=== PATIENT | male | born 1970 | race African-American/Black ===

== ENCOUNTER 2018-12-11 21:58 | Inpatient (IN) | payer OTHER ==
[2018-12-11 23:38] VITALS: BMI 24.8
--- NOTE | 2018-12-12 00:12 | HP ---
CIWA Score Nausea/Vomitin-Mild Nausea/No Vomiting Muscle Tremors: 4-Moderate,w/Arms Extend Anxiety: 2 Agitation: 4-Moderately Restless Paroxysmal Sweats: 2 Orientation: 0-Oriented Tacttile Disturbances: 0-None Auditory Disturbances: 0-None Visual Disturbances: 0-None Headache: 3-Moderate CIWA-Ar Total Score: 16 - Admission Criteria [facility]ASAS Guidelines: Admission for Medically Managed Detox: Requires at least one of the followin. CIWA greater than 12 2. Seizures within the past 24 hours 3. Delirium tremens within the past 24 hours 4. Hallucinations within the past 24 hours 5. Acute intervention needed for co occurring medical disorder 6. Acute intervention needed for co occurring psychiatric disorder 7. Severe withdrawal that cannot be handled at a lower level of care (continued vomiting, continued diarrhea, abnormal vital signs) requiring intravenous medication and/or fluids 8. Admission ROS [facility] - [facility] Chief Complaint: Alcohol withdrawal symptoms Allergies/Adverse Reactions: Allergies Allergy/AdvReac Type Severity Reaction Status Date / Time No Known Allergies Allergy Verified 12/11/18 23:49 History of Present Illness: 48 years old male with a long history of alcohol withdrawal symptoms is seeking admission to detox. Patient reports that this is his first admission to [facility] and first in patient detoxification. He has history of hypertension and hypothyroid. He denies suicide attempt and suicidal ideation at this time. Patient has a tracheostomy. Nursing specialty manufacturing supervisor aware and she states that Nursing is setting a suction set up at patient's bedside. Exam Limitations: Physical Impairment - Ebola screening Have you traveled outside of the country in the last 21 days: No (N) Have you had contact with anyone from an Ebola affected area: No Do you have a fever: No - Review of Systems Constitutional: Chills, Night Sweats, Changes in sleep EENT: reports: Sinus Pressure Respiratory: reports: No Symptoms reported, Shortness of Breath Cardiac: reports: Palpitations GI: reports: Poor Appetite, Poor Fluid Intake : reports: No Symptoms Reported Integumentary: reports: Dryness, Flushing Endocrine: reports: No Symptoms Reported Hematology: reports: No Symptoms Reported Psychiatric: reports: Anxious Other Systems: Reviewed and Negative Patient History - Patient Medical History Hx Anemia: No Hx Asthma: No Hx Chronic Obstructive Pulmonary Disease (COPD): No Hx Cancer: No Hx Cardiac Disorders: No Hx Congestive Heart Failure: No Hx Hypertension: Yes Hx Hypercholesterolemia: No Hx Pacemaker: No HX Cerebrovascular Accident: No Hx Seizures: No Hx Dementia: No Hx Diabetes: No Hx Gastrointestinal Disorders: No Hx Liver Disease: No Hx Genitourinary Disorders: No Hx Sexually Transmitted Disorders: No Hx Renal Disease (ESRD): No Hx Thyroid Disease: Yes Hx Human Immunodeficiency Virus (HIV): No Hx Hepatitis C: No Hx Depression: No Hx Suicide Attempt: No Hx Bipolar Disorder: No Hx Schizophrenia: No - Patient Surgical History Past Surgical History: Yes Other Surgical History: TRACHEOSTOMY 2006 - PPD History Previous Implant?: No PPD to be Administered?: No - Reproductive History Patient is a Female of Child Bearing Age (11 -55 yrs old): No (male) - Smoking Cessation Smoking history: Former smoker Have you smoked in the past 12 months: No Hx Chewing Tobacco Use: No Initiated information on smoking cessation: No - Substances abused Alcohol Substance route: Oral Frequency: Daily Amount used: 2 BEER 240Z AND 1 SHOT VODKA Age of first use: 30 Date of last use: 12/11/18 Admission Physical Exam [facility] - Vital Signs Vital Signs: Vital Signs - 24 hr 12/11/18 23:28 Temperature 98.0 F Pulse Rate 74 Respiratory 18 Rate Blood Pressure 112/75 Cleared for Admission [facility] - Detox or Rehab [facility] Level of Care: Medically Managed Detox Regimen/Protocol: [employer] Urine Drug Screen - Test Device Lot number: [id number] Expiration date: 09/18/20 - Control Is test valid?: Yes - Results Drug screen NEGATIVE: Yes Inpatient Rehab Admission - Rehab Decision to Admit Inpatient rehab admission?: No
[2018-12-12] MEDS ORDERED: MELATONIN 5 MG TABLETS PO PRN (00:33)
[2018-12-12] MEDS ORDERED: MAGNESIUM CITRATE 300 ML BOTTLE PO PRN (00:33)
[2018-12-12] MEDS ORDERED: ACETAMINOPHEN 325 MG TABLET (FP) PO PRN ×2 (00:33)
[2018-12-12] MEDS ORDERED: MENTHOL/PHENOL 1 EACH UD MM PRN (00:33)
[2018-12-12] MEDS ORDERED: BISMUTH SUBSALICYLATE 524 MG/30 ML UD PO PRN (00:33)
[2018-12-12] MEDS ORDERED: MAGNESIUM HYDROX 2400MG/30ML ORAL SUSPENSION 30 ML CUP PO PRN (00:33)
[2018-12-12] MEDS ORDERED: MAG HYDROX/AL HYDROX/SIMETH 30 ML UNIT-DOSE CUP PO PRN (00:33)
[2018-12-12] MEDS ORDERED: IBUPROFEN 400 MG TABLET (FP) PO PRN (00:33)
[2018-12-12] MEDS ORDERED: hydrOXYzine PAMOATE 25 MG CAPSULE (FP) PO PRN (00:33)
[2018-12-12] MEDS ORDERED: METHOCARBAMOL 500 MG TABLET PO PRN (00:33)
[2018-12-12] MEDS ORDERED: chlordiazePOXIDE HCL 25 MG CAPSULE PO PRN (00:39)
[2018-12-12] MEDS: LEVOTHYROXINE NA 25 MCG TABLET (FP) PO SCH (08:10)
--- NOTE | 2018-12-12 10:37 | PN ---
S CIWA - CIWA Score Nausea/Vomitin-No Nausea/No Vomiting Muscle Tremors: 2 Anxiety: 3 Agitation: 0-Normal Activity Paroxysmal Sweats: 3 Orientation: 0-Oriented Tacttile Disturbances: 0-None Auditory Disturbances: 0-None Visual Disturbances: 0-None Headache: 2-Mild CIWA-Ar Total Score: 10 [facility] Progress Note (SOAP) Subjective: c/o anxiety, sweats, mild shake, and headache Objective: 12/12/18 10:36 Vital Signs 12/12/18 12/12/18 06:00 09:50 Temperature 98.4 F 97.3 F L Pulse Rate 99 H 92 H Respiratory 18 18 Rate Blood Pressure 140/87 148/94 Labs pending. Assessment: 12/12/18 10:36 AOX3, in no acute respiratory distress. Full ROM, ambulating in the unit. Withdrawal symptoms. Noted pt with tracheostomy. Plan: continue detox. continue with tracheostomy care.
[2018-12-12] MEDS: PRENATAL VITAMINS W/ FOLIC ACID TABLET (FP) PO SCH (11:08)
[2018-12-12] MEDS: chlordiazePOXIDE HCL 25 MG CAPSULE PO SCH ×3 (11:09→23:14)
--- NOTE | 2018-12-12 17:46 | PN ---
[facility] Progress Note Note: Rapid response activated for this 48 year old male who is currently receiving detoxification treatment for alcohol. Patient's room mate summoned for help; he was found in bed throwing up. Patient has a tracheostomy that is capped, at baseline he is ambulatory. As per RN, this afternoon he was very weak and unsteady on his feet requiring assistance to the bathroom. On exam, he is awake but responds minimally with head gesture. He has no signs of respiratory distress. 911 activated and responded, patient transported to the ED. Report given to Dr. Ruvalcaba Vital Signs 12/12/18 12/12/18 09:50 14:08 Temperature 97.3 F L 96.1 F L Pulse Rate 92 H 97 H Respiratory 18 18 Rate Blood Pressure 148/94 150/100
[2018-12-12] MEDS: THIAMINE HCL 100 MG TABLET (FP) PO SCH (23:14)
[2018-12-13] MEDS: LEVOTHYROXINE NA 25 MCG TABLET (FP) PO SCH (07:31)
[2018-12-13] MEDS: chlordiazePOXIDE HCL 25 MG CAPSULE PO SCH ×4 (07:31→22:47)
[2018-12-13 09:36] LABS: ALBUMIN 3.4 g/dl (3.4-5.0); BLOOD UREA NITROGEN 8.7 mg/dL (7-18); HEMATOCRIT 31.5 % (35.4-49); HEMOGLOBIN 10.7 GM/dL (11.7-16.9); MCH 35.7 pg (25.7-33.7); MCHC 34.1 g/dl (32.0-35.9); MEAN CELL VOLUME 104.8 fl (80-96); MEAN PLT VOLUME 8.3 fl (7.5-11.1); PLATELET COUNT 156 K/MM3 (134-434); POTASSIUM 3.2 mmol/L (3.5-5.1); TOT PROT 7.9 g/dl (6.4-8.2); WHITE BLOOD COUNT 3.7 K/mm3 (4.0-10.0)
[2018-12-13] MEDS: PRENATAL VITAMINS W/ FOLIC ACID TABLET (FP) PO SCH (10:55)
--- NOTE | 2018-12-13 13:12 | PN ---
[facility] CIWA - CIWA Score Nausea/Vomitin-Mild Nausea/No Vomiting Muscle Tremors: 4-Moderate,w/Arms Extend Anxiety: 4-Mod. Anxious/Guarded Agitation: 3 Paroxysmal Sweats: 2 Orientation: 0-Oriented Tacttile Disturbances: 0-None Auditory Disturbances: 0-None Visual Disturbances: 0-None Headache: 0-None Present CIWA-Ar Total Score: 14 S Progress Note (SOAP) Subjective: Interrupted sleep, sxs controlled with medication Objective: 12/13/18 13:07 Last Vital Signs Temp Pulse Resp BP Pulse Ox 98.8 F 105 H 18 118/50 L 12/13/18 13:02 12/13/18 13:02 12/13/18 13:02 12/13/18 13:02 Laboratory Tests 12/13/18 12/13/18 12/13/18 07:45 07:45 07:45 WBC 3.7 L RBC 3.00 L Hgb 10.7 L Hct 31.5 L MCV 104.8 H MCH 35.7 H MCHC 34.1 RDW 14.0 Plt Count 156 MPV 8.3 D Sodium 139 Potassium 3.2 L Chloride 100 Carbon Dioxide 30 Anion Gap 10 BUN 8.7 Creatinine 1.0 Est GFR (CKD-EPI)AfAm 101.26 Est GFR (CKD-EPI)NonAf 87.37 Random Glucose 79 Calcium 8.0 L Total Bilirubin 1.0 AST 79 H ALT 29 Alkaline Phosphatase 91 Total Protein 7.9 Albumin 3.4 RPR Titer Nonreactive Labs reviewed: h/h 10.7/31.5, K 3.2 Assessment: 12/13/18 13:09 Withdrawal sxs Noted with anemia and hypokalemia Plan: Continue detox Encouraged PO water intake Anemia: most likely due to chronic alcoholism, send iron studies, consider initiating iron supplement Hypokalemia: K Dur 40 Meq PO liquid x 2 doses (at least 4 hours apart, repeat serum K level in AM)
[2018-12-13] MEDS ORDERED: POTASSIUM CHLORIDE ORAL LIQUID 20 MEQ/15 ML PO ONE ×2 (13:13→20:00)
[2018-12-13] MEDS: THIAMINE HCL 100 MG TABLET (FP) PO SCH (22:47)
[2018-12-14] MEDS: chlordiazePOXIDE HCL 25 MG CAPSULE PO SCH ×3 (06:05→17:31)
[2018-12-14] MEDS: LEVOTHYROXINE NA 25 MCG TABLET (FP) PO SCH (07:45)
[2018-12-14] MEDS: PRENATAL VITAMINS W/ FOLIC ACID TABLET (FP) PO SCH (10:16)
--- NOTE | 2018-12-14 10:44 | PN ---
[facility] CIWA - CIWA Score Nausea/Vomitin-Mild Nausea/No Vomiting Muscle Tremors: 2 Anxiety: 2 Agitation: 2 Paroxysmal Sweats: 1-Minimal Palms Moist Orientation: 0-Oriented Tacttile Disturbances: 0-None Auditory Disturbances: 0-None Visual Disturbances: 0-None Headache: 1-Very Mild CIWA-Ar Total Score: 9 [facility] Progress Note (SOAP) Subjective: pt without complaints this morning. O: Vital Signs - 24 hr 12/13/18 12/13/18 12/13/18 13:02 16:41 21:13 Temperature 98.8 F 99.3 F 99.5 F Pulse Rate 105 H 94 H 97 H Respiratory 18 18 16 Rate Blood Pressure 118/50 L 158/78 138/93 12/14/18 12/14/18 12/14/18 00:30 06:00 09:05 Temperature 99.0 F 98.6 F Pulse Rate 93 H 94 H Respiratory 18 18 18 Rate Blood Pressure 142/92 138/89 alert and oriented Laboratory Tests 12/13/18 12/13/18 12/13/18 07:45 07:45 07:45 WBC 3.7 L RBC 3.00 L Hgb 10.7 L Hct 31.5 L MCV 104.8 H MCH 35.7 H MCHC 34.1 RDW 14.0 Plt Count 156 MPV 8.3 D Sodium 139 Potassium 3.2 L Chloride 100 Carbon Dioxide 30 Anion Gap 10 BUN 8.7 Creatinine 1.0 Est GFR (CKD-EPI)AfAm 101.26 Est GFR (CKD-EPI)NonAf 87.37 Random Glucose 79 Calcium 8.0 L Total Bilirubin 1.0 AST 79 H ALT 29 Alkaline Phosphatase 91 Total Protein 7.9 Albumin 3.4 RPR Titer Nonreactive a/p: continue alcohol detox protocol hypokalemia: continue K- 20meq/day Macrocytic anemia- start B12: iron studies pending
[2018-12-14] MEDS: POTASSIUM CHLORIDE TABS 20 MEQ TABLET.ER (FP) PO SCH (12:00)
[2018-12-14] MEDS: CYANOCOBALAMIN 1,000 MCG TABLET (FP) PO SCH (12:00)
[2018-12-14 12:53] LABS: POTASSIUM 3.6 mmol/L (3.5-5.1)
[2018-12-15] MEDS ORDERED: chlordiazePOXIDE HCL 10 MG CAPSULE PO PRN
[2018-12-15] MEDS: chlordiazePOXIDE HCL 25 MG CAPSULE PO SCH (00:06)
[2018-12-15] MEDS: THIAMINE HCL 100 MG TABLET (FP) PO SCH ×2 (00:07→22:38)
[2018-12-15] MEDS: chlordiazePOXIDE HCL 10 MG CAPSULE PO SCH ×4 (06:45→22:38)
[2018-12-15] MEDS: LEVOTHYROXINE NA 25 MCG TABLET (FP) PO SCH (06:45)
[2018-12-15] MEDS: CYANOCOBALAMIN 1,000 MCG TABLET (FP) PO SCH (10:25)
[2018-12-15] MEDS: POTASSIUM CHLORIDE TABS 20 MEQ TABLET.ER (FP) PO SCH (10:49)
[2018-12-15] MEDS: PRENATAL VITAMINS W/ FOLIC ACID TABLET (FP) PO SCH (10:49)
--- NOTE | 2018-12-15 11:39 | PN ---
S CIWA - CIWA Score Nausea/Vomitin Muscle Tremors: 2 Anxiety: 2 Agitation: 2 Paroxysmal Sweats: No Perspiration Orientation: 0-Oriented Tacttile Disturbances: 1-Very Mild Itch/Numbness Auditory Disturbances: 0-None Visual Disturbances: 0-None Headache: 2-Mild CIWA-Ar Total Score: 11 S Progress Note (SOAP) Subjective: alert,irritable,anxious,interrupted sleep,pain in the body Objective: 12/15/18 11:38 Vital Signs Temperature 97.7 F 12/15/18 09:21 Pulse Rate 99 H 12/15/18 09:21 Respiratory Rate 18 12/15/18 09:21 Blood Pressure 128/97 12/15/18 09:21 O2 Sat by Pulse Oximetry (%) Assessment: 12/15/18 11:39 withdrawal symptom Plan: continue detox librium regimen
[2018-12-15] MEDS: metoPROLOL SUCCINATE 25 MG TAB.SR.24H (FP) PO SCH (12:53)
[2018-12-16] MEDS: LEVOTHYROXINE NA 25 MCG TABLET (FP) PO SCH (06:35)
[2018-12-16] MEDS: chlordiazePOXIDE HCL 10 MG CAPSULE PO SCH ×2 (06:35→18:26)
--- NOTE | 2018-12-16 10:11 | PN ---
S CIWA - CIWA Score Nausea/Vomitin Muscle Tremors: 2 Anxiety: 2 Agitation: 2 Paroxysmal Sweats: No Perspiration Orientation: 0-Oriented Tacttile Disturbances: 0-None Auditory Disturbances: 0-None Visual Disturbances: 0-None Headache: 1-Very Mild CIWA-Ar Total Score: 9 [facility] Progress Note (SOAP) Subjective: alert,irritable,anxious,interrupted sleep,pain in the body Objective: 12/16/18 10:10 Vital Signs Temperature 96.9 F L 12/16/18 09:18 Pulse Rate 85 12/16/18 09:18 Respiratory Rate 18 12/16/18 09:18 Blood Pressure 132/90 12/16/18 09:18 O2 Sat by Pulse Oximetry (%) Assessment: 12/16/18 10:10 withdrawal symptom Plan: continue detox,discharge in am
[2018-12-16] MEDS: POTASSIUM CHLORIDE TABS 20 MEQ TABLET.ER (FP) PO SCH (10:38)
[2018-12-16] MEDS: PRENATAL VITAMINS W/ FOLIC ACID TABLET (FP) PO SCH (10:38)
[2018-12-16] MEDS: metoPROLOL SUCCINATE 25 MG TAB.SR.24H (FP) PO SCH (10:38)
[2018-12-16] MEDS: CYANOCOBALAMIN 1,000 MCG TABLET (FP) PO SCH (11:00)
[2018-12-16] MEDS: THIAMINE HCL 100 MG TABLET (FP) PO SCH (22:55)
[2018-12-17] MEDS ORDERED: chlordiazePOXIDE HCL 10 MG CAPSULE PO ONE (05:00)
[2018-12-17] MEDS: LEVOTHYROXINE NA 25 MCG TABLET (FP) PO SCH (06:45)
--- NOTE | 2018-12-17 08:38 | DS ---
[facility] Detox Discharge Summary Admission Date: 12/11/18 Discharge Date: 12/17/18 - History Present History: Alcohol Dependence - Physical Exam Results Vital Signs: Vital Signs Temperature 98.2 F 12/17/18 07:17 Pulse Rate 84 12/17/18 07:17 Respiratory Rate 18 12/17/18 07:17 Blood Pressure 131/81 12/17/18 07:17 O2 Sat by Pulse Oximetry (%) Pertinent Admission Physical Exam Findings: pt arrived in withdrawals Laboratory Tests 12/13/18 12/13/18 12/13/18 07:45 07:45 07:45 WBC 3.7 L RBC 3.00 L Hgb 10.7 L Hct 31.5 L MCV 104.8 H MCH 35.7 H MCHC 34.1 RDW 14.0 Plt Count 156 MPV 8.3 D Sodium 139 Potassium 3.2 L Chloride 100 Carbon Dioxide 30 Anion Gap 10 BUN 8.7 Creatinine 1.0 Est GFR (CKD-EPI)AfAm 101.26 Est GFR (CKD-EPI)NonAf 87.37 Random Glucose 79 Calcium 8.0 L Iron TIBC Iron Saturation Unsaturated IBC Ferritin Total Bilirubin 1.0 AST 79 H ALT 29 Alkaline Phosphatase 91 Total Protein 7.9 Albumin 3.4 Vitamin B12 Serum Folate RPR Titer Nonreactive 12/14/18 12/14/18 08:20 08:20 WBC RBC Hgb Hct MCV MCH MCHC RDW Plt Count MPV Sodium Potassium 3.6 Chloride Carbon Dioxide Anion Gap BUN Creatinine Est GFR (CKD-EPI)AfAm Est GFR (CKD-EPI)NonAf Random Glucose Calcium Iron 84 TIBC 286 Iron Saturation 29 Unsaturated IBC 202 Ferritin 589.0 H Total Bilirubin AST ALT Alkaline Phosphatase Total Protein Albumin Vitamin B12 788 Serum Folate 8 RPR Titer today pt is aaox3 ambulating no acute distress - Treatment Hospital Course: Detox Protocol Followed, Detoxed Safely, Responded well, Discharged Condition Good, Rehab Referral Accepted Patient has Accepted a Rehab Referral to: referral provided - Medication Discharge Medications: Ambulatory Orders Metoprolol Succinate [Toprol Xl] 25 mg PO DAILY 12/11/18 Levothyroxine [Synthroid -] 75 mcg PO DAILY 12/17/18 - Diagnosis (1) Hypothyroidism Current Visit: Yes Status: Chronic Qualifiers: Hypothyroidism type: unspecified Qualified Code(s): E03.9 - Hypothyroidism , unspecified (2) Alcohol dependence with uncomplicated withdrawal Current Visit: Yes Status: Chronic (3) Fall Current Visit: No Status: Resolved Qualifiers: Encounter type: initial encounter Qualified Code(s): W19.XXXA - Unspecified fall, initial encounter - AMA Did Patient Leave Against Medical Advice: No
[2018-12-17 09:32] VITALS: BP 123/78; PULSE 90; TEMP 97.6
== END 2018-12-17 10:08 | disposition home or self-care (01) | DRG 896 ==
LOC: YASAS 21:58 → Y6N 23:41
PROVIDERS: ADMIT Surgery; ATTEND Surgery
PROC: HZ2ZZZZ Detoxification Services for Substance Abuse Treatment (ICD-10-PCS; principal; 2018-12-11)
DX: F10.230 Alcohol dependence with withdrawal, uncomplicated (principal); B50.9 Plasmodium falciparum malaria, unspecified; I10 Essential (primary) hypertension; E03.9 Hypothyroidism, unspecified; E87.6 Hypokalemia; R11.10 Vomiting, unspecified; R53.1 Weakness; R26.89 Other abnormalities of gait and mobility; W18.39XA Other fall on same level, initial encounter; Y93.89 Activity, other specified; Y92.230 Patient room in hospital as the place of occurrence of the external cause; Y99.8 Other external cause status; Z93.0 Tracheostomy status
CPT/HCPCS: 36415; 71046-TC-FY; 80053; 82607; 82728; 82746; 83540; 83550; 84132; 85027; 86593

== ENCOUNTER 2018-12-12 17:57 | Emergency (ER) | payer OTHER ==
[2018-12-12 18:27] VITALS: TEMP 98.2; BMI 25.1
[2018-12-12] MEDS ORDERED: FOLIC ACID INJECTION - 1 MG, THIAMINE HCL 100 MG, MULTIVIT INJECTION ADULT 10 ML in SOD... IVPB ONE (19:57)
[2018-12-12] MEDS ORDERED: chlordiazePOXIDE HCL 25 MG CAPSULE PO ONE (20:17)
--- NOTE | 2018-12-12 20:36 | PDOC ---
History of Present Illness - General Chief Complaint: Respiratory Stated Complaint: EVAULATION Time Seen by Provider: 12/12/18 19:59 History Source: Patient, Other ([facility] Admission Notes) Exam Limitations: No Limitations - History of Present Illness Initial Comments: HPI: 48 y/o male presenting to [facility] ER from [facility] Detox to be evaluated for the possibility of aspiration after vomiting. Pt is s/p tracheostomy placement 13 years ago. [facility] note states pt was found vomiting in room but notes no respiratory distress with normal SPO2. On interview, the pt denies every vomiting but reports he may have passed out earlier. Cannot provide further details or timeline of events. Denies chest pain, SOB, fever, or chills. Pt is currently being treated for EtOH abuse. Reports last time he drank was two weeks ago and denies additional street drug abuse. Never used needles. 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 (per Pt ) - H/o of EtOH abuse Review of Systems: In addition to that documented in the HPI above, the additional ROS was obtained : Constitutional: Denies fevers or chills Head: Denies vision changes ENMT: Denies sore throat CV: Denies chest pain Resp: Denies SOB GI: Denies vomiting or diarrhea : Denies painful urination MSK: Denies recent trauma Skin: Denies new rashes Neuro: Denies new numbness or tingling or weakness Endocrine: Denies polyuria Heme: Denies bleeding or bruising Physical Examination: Constitutional: Well-developed, well-nourished adult male in no acute distress or obvious discomfort. Found semi-fowlers on hospital bed. Alert and oriented x4. Head: Normocephalic. No obvious external signs of trauma. Eyes: Sclerae white. Ears: Hearing grossly intact. Nose: No nasal discharge. Neck: Supple. Tracheostomy speaking valve in place and functioning. Cardiovascular / Chest: Regular rate and regular rhythm. No murmur, rubs, clicks , or gallops. Peripheral pulses: radial pulses full. Respiratory: Breathing unlabored. Equal chest rise and fall. Clear to auscultation bilaterally. No stridor, no wheezing, no rhonchi. Neuro: Alert and oriented. Moving all four extremities spontaneously. Hands and tongue tremulous. Skin: Warm, dry, and intact. Psych: Affect: appropriate. Mood: normal. MDM: *Reviewed vital signs, nursing notes, and prior visit documentation (if available). 48 y/o male presenting from [facility] for unclear reason. Will attempt to clarify with [facility] staff. Afebrile. Vitals unremarkable for hypotension or tachycardia. Physical exam as described above. Low suspicion for aspiration as pt is without respiratory symptoms several hours after events at [facility]. Will obtain basic labs given vomiting and CXR. Ordered Librium for trimmers. Telephone conversation with [employer] Dennis at [facility]. Unable to provide further details. [employer] Pete, earlier note telegraphic typewriter operator, not available. Pt reported to ED Attending that he fell earlier. Ordered Head CT to further evaluate. No acute injury noted on head CT. No obvious signs of aspiration on chest xray. No leukocytosis. Observed pt walking unassisted through department without difficulty. Case discussed with [facility] [employer]. Pt to return for further detox. Chivo French M.D., PGY2 Emergency Medicine Resident Past History - Past Medical History Allergies/Adverse Reactions: Allergies Allergy/AdvReac Type Severity Reaction Status Date / Time No Known Allergies Allergy Verified 12/12/18 18:27 Home Medications: Ambulatory Orders Levothyroxine [Synthroid -] 25 mcg PO DAILY 12/11/18 Levothyroxine [Synthroid -] 112 mcg PO DAILY 12/11/18 Metoprolol Succinate [Toprol Xl] 25 mg PO DAILY 12/11/18 Anemia: No Asthma: No Cancer: No Cardiac Disorders: No CVA: No COPD: No CHF: No Dementia: No Diabetes: No GI Disorders: No Disorders: No HTN: Yes Hypercholesterolemia: No Kidney Stones: No Liver Disease: No Seizures: No Thyroid Disease: Yes - Suicide/Smoking/Psychosocial Hx Smoking History: Unknown if ever smoked Have you smoked in the past 12 months: No Information on smoking cessation initiated: No Hx Alcohol Use: No Drug/Substance Use Hx: No *Physical Exam - Vital Signs Last Vital Signs Temp Pulse Resp BP Pulse Ox 98.2 F 83 16 154/95 99 12/12/18 18:24 12/12/18 18:24 12/12/18 18:24 12/12/18 18:24 12/12/18 18:24 ED Treatment Course - LABORATORY CBC & Chemistry Diagram: 12/12/18 20:51 12/12/18 20:51 - RADIOLOGY Radiograph Interpretation: Head CT: THIS IS A PRELIMINARY REPORT FROM [facility] DATE OF SERVICE: 2018-12-12 22:37:10 IMAGES: 145 EXAM: CT BRAIN WITHOUT INTRAVENOUS CONTRAST. HISTORY: Fall. COMPARISON: None. FINDINGS: 1. There is no intracranial bleed, extra axial fluid collection, mass effect, midline shift, hydrocephalus, acute territorial infarct or depressed skull fracture evident. One or more of the following dose reduction techniques were used: automated exposure control, adjustment of the mA and/or kV according to patient size, use of iterative reconstructive technique. THIS DOCUMENT HAS BEEN ELECTRONICALLY SIGNED Lavell Garnica M.D 12/12/2018 23:17 EST Chest XRay: THIS IS A PRELIMINARY REPORT FROM [facility] DATE OF SERVICE: 2018-12-12 20:55:55 IMAGES: 3 EXAM: CHEST PA \T\ LAT HISTORY: Evaluate for aspiration COMPARISON: None. FINDINGS: The cardiomediastinal silhouette is normal. Hypoventilatory examination without focal consolidation. Pleural contours are normal without pleural effusion or pneumothorax. No suspicious osseous abnormality. IMPRESSION: 1. Hypoventilatory examination without acute cardiopulmonary disease. THIS DOCUMENT HAS BEEN ELECTRONICALLY SIGNED Martin Veras MD 12/12/2018 21:38 EST *DC/Admit/Observation/Transfer Diagnosis at time of Disposition: Fall Qualifiers: Encounter type: initial encounter Qualified Code(s): W19.XXXA - Unspecified fall, initial encounter - Discharge Dispostion Disposition: HOME Condition at time of disposition: Good Decision to Admit order: No - Referrals - Patient Instructions Additional Instructions: You were seen today after possibly falling at [facility]. Your blood work and xrays were normal. Your symptoms may have been related to your detox process. You are going to be transported back to [facility] for further inpatient detox. Best of luck on your recovery! Follow up with the doctors at [facility] or your personal primary care doctor within the next week to make sure you are healing. Go to the nearest emergency department if your condition worsens or you feel like you need additional emergency evaluation. Print Language: FRISIAN - Post Discharge Activity
[2018-12-12] MEDS ORDERED: chlordiazePOXIDE HCL 25 MG CAPSULE ONE (20:46)
[2018-12-12 20:59] LABS: BASO % 0.8 % (0-2.0); HEMATOCRIT 30.7 % (35.4-49); HEMOGLOBIN 10.4 GM/dL (11.7-16.9); MCH 35.8 pg (25.7-33.7); MCHC 33.9 g/dl (32.0-35.9); MEAN CELL VOLUME 105.7 fl (80-96); MEAN PLT VOLUME 7.5 fl (7.5-11.1); MONO % 9.3 % (3.8-10.2); NEUT % 67.9 % (42.8-82.8); RDW 14.2 % (11.9-15.9); WHITE BLOOD COUNT 4.3 K/mm3 (4.0-10.0)
[2018-12-12 21:09] LABS: PLATELET COUNT 154 K/MM3 (134-434)
[2018-12-12 21:29] LABS: ALBUMIN 3.4 g/dl (3.4-5.0); ALK PHOS 89 U/L (45-117); ANION GAP 11 MMOL/L (8-16); BILIRUBIN,TOTAL 0.8 mg/dL (0.2-1); BLOOD UREA NITROGEN 7.5 mg/dL (7-18); CHLORIDE 99 mmol/L (98-107); CO2 29 mmol/L (21-32); GLUCOSE,RANDOM 93 mg/dL (74-106); POTASSIUM 3.1 mmol/L (3.5-5.1); SGOT/AST 79 U/L (15-37); SGPT/ALT 32 U/L (13-61); SODIUM 139 mmol/L (136-145)
[2018-12-12 22:21] LABS: ANISOCYTOSIS 1+; MACROCYTOSIS 2+; PLATELET ESTIMATE NORMAL
--- NOTE | 2018-12-12 22:47 | PDOC ---
Documentation entered by Mario Abdi SCRIBE, acting as scribe for Alesia Montez MD. Alesia Montez MD: This documentation has been prepared by the senge, Mario Abdi SCRIBE, under my direction and personally reviewed by me in its entirety. I confirm that the documentation accurately reflects all work, treatment, procedures, and medical decision making performed by me. Attending Attestation - Resident Resident Name: Chivo French - ED Attending Attestation I have performed the following: I have examined & evaluated the patient, The case was reviewed & discussed with the resident, I agree w/resident's findings & plan, Exceptions are as noted - HPI HPI: 12/12/18 22:17 The patient is a 48 year old male with a significant past medical history of hypertension who presents to the emergency department from [facility] for evaluation of possible of aspiration after vomiting. Pt is s/p tracheostomy placement 13 years ago after thyroidectomy (?). Per [facility] note ... staff was alerted by patient's room mate, pt was found vomiting in room (no note is made of any respiratory distress). Per patient ... he states he thinks he passed out and struck his head (can not provide any additional details). Call placed to [facility] to obtain additional information, the person who answered the phone did not know specifically what happened Pt currently state he feels well. Denies chest pain, SOB, fever, or chills. Denies tremulousness 12/12/18 22:31 - Physicial Exam PE: 12/12/18 22:29 GENERAL: The patient is in no acute distress. ENT: Ears normal, nares patent, oropharynx clear without exudates. Moist mucous membranes. NECK: Normal range of motion, supple, Tracheostomy is in place LUNGS: Breath sounds equal, clear to auscultation bilaterally. HEART:Regular rate and rhythm, normal S1 and S2 without murmur, rub or gallop. ABDOMEN: Soft, nontender, normoactive bowel sounds. EXTREMITIES: Normal range of motion NEUROLOGICAL: Cranial nerves II through XII grossly intact. Normal speech. No focal neurological deficits. SKIN: hyperpigmented lesions on the dorsum of hands bilaterally - Medical Decision Making 12/12/18 22:31 48 yo M sent to the ER for unclear reasons but has no complaints at this time Will do basic labs EKG CT head If all appears normal (at patient's baseline), will return to [facility] EKG: NSR rate of 81 bpm, axis nml, intervals nml - pr:184ms, QRS: 84ms, QTc: 418ms, t wave inversion v4-v6, I, aVL (no old EKG for comparison) 12/12/18 22:46 Laboratory Tests 12/12/18 12/12/18 12/12/18 20:51 20:51 20:51 WBC 4.3 Hgb 10.4 L Hct 30.7 L Plt Count 154 BUN 7.5 Creatinine 1.0 Troponin I < 0.02 Alcohol, Quantitative < 3.[address] head 12/12/18 23:24 EXAM: CT BRAIN WITHOUT INTRAVENOUS CONTRAST. HISTORY: Fall. COMPARISON: None. FINDINGS: 1. There is no intracranial bleed, extra axial fluid collection, mass effect, midline shift, hydrocephalus, acute territorial infarct or depressed skull fracture evident. One or more of the following dose reduction techniques were used: automated exposure control, adjustment of the mA and/or kV according to patient size, use of iterative reconstructive technique. Will return to [facility] 12/13/18 00:24 12/13/18 00:30 12/13/18 00:31
[2018-12-13 02:53] VITALS: BP 118/88; PULSE 95
--- NOTE | 2018-12-13 11:30 | EKG ---
Test Reason : Blood Pressure : / mmHG Vent. Rate : 081 BPM Atrial Rate : 081 BPM P-R Int : 184 ms QRS Dur : 084 ms QT Int : 360 ms P-R-T Axes : 076 046 102 degrees QTc Int : 418 ms NORMAL SINUS RHYTHM NONSPECIFIC T WAVE ABNORMALITY ABNORMAL ECG NO PREVIOUS ECGS AVAILABLE CLINICAL CORRELATION IS RECOMMENDED Confirmed by BARNEY MARES, JAIDA ([id number]) on 12/13/2018 11:30:18 AM Referred By: Bogdan Batres Confirmed By:JAIDA CORLEY MD
== END 2018-12-13 03:01 | disposition home or self-care (01) ==
LOC: JER 17:57
DX: R11.10 Vomiting, unspecified (principal); W18.39XA Other fall on same level, initial encounter; Y93.89 Activity, other specified; Y92.230 Patient room in hospital as the place of occurrence of the external cause; Y99.8 Other external cause status; I10 Essential (primary) hypertension; F10.20 Alcohol dependence, uncomplicated
CPT/HCPCS: 36415; 70450-TC; 71046-TC-FY; 80053; 80307; 84484; 85025; 93005; 93010; 99282-25; J7030